=== PATIENT | female | born 1965 | race Caucasian/White ===

== ENCOUNTER → 2018-02-03 06:33 | Outpatient (CLI) | payer OTHER, SELFPAY ==
--- NOTE | 2018-02-03 12:55 | STRESSREP_ITS ---
Stress Test Report Exercise myocardial perfusion stress test. 53-year-old lady with a history of chest pain and dyspnea. Stress protocol: Resting EKG demonstrates normal sinus rhythm with a rate of 64 bpm no intervals are noted resting blood pressure is 112/76 meters of mercury. The patient exercised according to the regular Artem protocol for total duration of 10 minutes completing 1 minute into stage IV of the Artem protocol. The maximum heart rate attained was 155 bpm which was 92% of maximum predicted heart rate the maximum workload attained was 11.7 metabolic equivalents. At rest there were no ST or T-wave changes noted suggest ischemia at peak exercise no ST or T- wave changes were noted suggest ischemia. No clinical angina was noted the test was terminated due to leg fatigue. The resting blood pressure is 102/76 with a peak blood pressure 130/80 mmHg. Myocardial perfusion protocol. 13.9 mCi of technetium 99m sestamibi was injected at rest. The patient exercised according to regular Artem protocol for total duration of 10 minutes attaining 92% of maximum predicted heart rate at peak exercise 42.2 mCi of technetium 99m sestamibi was injected. Stress images were obtained stress and rest images were reconstructed and compared in the short axis vertical long and horizontal long axis. Gated images were also obtained Perfusion SPECT analysis: Review of the stress images demonstrate normal uptake of tracer noted in all areas of the myocardium. The resting images similarly demonstrate normal uptake of tracer noted in all areas of the myocardium. No areas of reversibility are noted suggest ischemia and no previous infarct is noted. Gated SPECT analysis. The gated ejection fraction is 73%. Conclusion: Normal exercise myocardial perfusion stress test at a high workload. Excellent functional capacity. Preserved ejection fraction.
== END ==
PROVIDERS: Family Provider Family Medicine; PCP Family Medicine; Visit Provider Internal Medicine Pulmonary Disease
DX: R06.00 Dyspnea, unspecified (principal)
CPT/HCPCS: 78452; 93017; A9500; A4216

== ENCOUNTER 2018-10-24 10:07 | Emergency (ER) | payer OTHER, SELFPAY ==
[2018-10-24 10:08] VITALS: BP 119/88; PULSE 62; RESP 14; TEMP 36.7; O2SAT 100; BMI 25.9
--- NOTE | 2018-10-24 10:27 | CT_ITS ---
STUDY: CT BRAIN WITHOUT CONTRAST REASON FOR EXAM: Female, 53 years old. Dizziness RADIATION DOSAGE (If Supplied By Facility): CTDIvol = ( 44.99 ) mGy, DLP = ( 745.49 ) mGycm TECHNIQUE: Transaxial CT imaging of the brain was performed without administration of intravenous contrast material. Individualized dose optimization techniques were used for this CT. COMPARISON: None. FINDINGS: There is no acute bleed or infarct. There are normal white matter tracts. The ventricles are normal in configuration. There is no hydrocephalus. The visualized paranasal sinuses are clear. The mastoid air cells are well aerated. There is no skull fracture. CT/Brain/Head without Contrast IMPRESSION: No acute intracranial abnormality. Electronically Signed: Porfirio Santacruz, at 11:12 EST Tel , Service support ,
--- NOTE | 2018-10-24 10:27 | RAD_ITS ---
STUDY: X-RAY CHEST REASON FOR EXAM: Female, 53 years old. Dizziness TECHNIQUE: Frontal view of the chest COMPARISON: None. FINDINGS: The lungs are clear. There are no pleural effusions. There is no pneumothorax. The heart is normal in size. The visualized osseous structures are within normal limits. RAD/Chest 1 View (Portable) IMPRESSION: No acute thoracic pathology. Electronically Signed: Porfirio Santacruz, at 11:15 EST Tel , Service support ,
--- NOTE | 2018-10-24 10:27 | EKG12_ITS ---
Test Reason : DIZZINESS Blood Pressure : / mmHG Vent. Rate : 062 BPM Atrial Rate : 062 BPM P-R Int : 186 ms QRS Dur : 086 ms QT Int : 436 ms P-R-T Axes : 049 092 045 degrees QTc Int : 442 ms Normal sinus rhythm with sinus arrhythmia Rightward axis Borderline ECG Confirmed by DIANNE VILLAR, HOMA ([id number]), slot editor DAIANA SPENCER ([id number] on 10/27/2018 2:53:33 PM Referred By: DC Confirmed By:HOMA DEAN MD
--- NOTE | 2018-10-24 10:30 | ED.DCSUM_ITS ---
- ER Visit Summary Date of Service: 10/24/18 Chief Complaint: Dizziness History of Present Illness: The patient is a 53 F with a history of breast cancer and vertigo. She presents today for dizziness. The symptoms have been going on for about 2 weeks. They have been intermittent, but in the last 3 days they have been constant. She describes an unsteadiness and worsening sensation when she turns her head. She does have some mild nausea without vomiting. Mild headache. Patient is fairly healthy and does [employer]. Her symptoms are worse at [employer]. She is not having chest pain, shortness of breath. She denies any cardiac history. She has not taken anything for this. She increased her fluid intake but has not had medicines. She went to urgent care and she was referred to the emergency department because they said they could not evaluate her heart. Physical Examination: Afebrile and vital signs unremarkable. Patient is alert and oriented. No acute distress. Sitting comfortably. HEENT exam unremarkable. Cranial nerves grossly intact. Heart regular. Lungs clear. Skin appears normal. No focal or lateralizing neurologic abnormalities grossly. Test Results: CT brain, chest x-ray, EKG, and labs pending. Emergency Department Course and Treatment: Patient treated with a fluid bolus and meclizine while awaiting results. Will reassess. Workup unremarkable. Patient discussed with Dr. Patel as she had minimal improvement with meclizine plus worsening and continuous vertigo recently. He advised MRI and MRA. We are waiting on clearance due to her previous cardiac wires. If MRI and MRA normal, patient will be discharged to follow up with ENT with an RX for meclizine. Signed out to Dr. Obando. Treatment Plan: As above Disposition: Pending MRI/MRA Impression: 1. Vertigo This note was generated with [employer] software. It may contain incorrect words, spelling, and punctuation that were not noted in review of the chart prior to signing ED Disposition - Plan for ED Patient: Chief Complaint: Dizziness Instructions: ED Vertigo Unspecified Prescriptions: RX: Meclizine HCl 25 mg PO TID PRN PRN #20 tab PRN Reason: Vertigo Referrals: Brian Glass MD [STAFF PHYSICIAN] -
[2018-10-24] MEDS: Meclizine HCl 25 MG Tablet PO (10:46)
[2018-10-24] MEDS: 0.9% Normal Saline 1,000 ML 1000 ML IV (10:46)
[2018-10-24 10:59] LABS: Absolute Lymphocyte Count 1.64 X10^3/ul (0.83-4.51); Absolute Neutrophil Count 2.7 X10^3/uL (2.0-7.7); Basophil# 0.04 X10^3/uL; Basophil% 0.8 % (0-1); Eosinophil# 0.19 X10^3/uL; Eosinophils% 3.8 % (0-5); Hematocrit 41.3 % (37-47); Hemoglobin 13.7 g/dl (12.0-15.0); Lymphocyte # 1.64 X10^3/ul (4.0); Lymphocyte % 32.6 % (19-41); Mean Corp Hgb Conc 33.2 g/gl (32-36); Mean Corpuscular Hgb 29.8 pg (27.0-32.0); Mean Corpuscular Volume 89.8 fL (81-99); Mean Platelet Vol. 9.4 fl (6.2-12.0); Monocyte# 0.48 X10^3/uL; Monocyte% 9.5 % (0-10); Neutrophil # 2.67 X10^3/uL (2.7-7.7); Neutrophil % 53.1 % (47-70); Platelet Count 289 K/mm3 (150-450); RBC Distribution Width CV 12.3 % (11.6-14.6); RBC Distribution Width SD 39.8 fl (35.1-43.9)
[2018-10-24 11:01] LABS: POSITIVE COUNT NO; POSITIVE DIFFERENTIAL NO; POSITIVE MORPHOLOGY NO
[2018-10-24 11:42] LABS: Anion Gap 8 (5-15); BUN 17 mg/dL (7-18); BUN/Creat Ratio 21.3 RATIO (10-20); Calcium,Total 8.9 mg/dL (8.5-10.1); Chloride 106 mmol/L (98-107); EST Glomerular Filtration Rate 80 mL/min (>60); Est Glom Filt Rate - Afr Amer 96 mL/min (>60); Estimated Creatinine Clearance 82.04 ml/min; Glucose 86 mg/dL (74-106); Potassium 3.9 mmol/L (3.5-5.1); Sodium Level 139 mmol/L (136-145)
[2018-10-24 12:54] VITALS: BP 118/78; PULSE 63; RESP 18; O2SAT 97
--- NOTE | 2018-10-24 16:02 | ED.DEP ---
ED Disposition - Plan for ED Patient: Chief Complaint: Dizziness Instructions: ED Vertigo Unspecified Prescriptions: Meclizine HCl 25 mg PO TID PRN PRN #20 tab PRN Reason: Vertigo Referrals: Brian Glass MD [STAFF PHYSICIAN] -
[2018-10-24 17:24] VITALS: BP 117/76; PULSE 63; RESP 16; O2SAT 100
--- OUTSIDE RECORDS SUMMARY | 2018-12-18 19:56 | XMS RPT_ITS ---
:1965 Author Organization [place] Support Name Relationship Address Phone [facility] Unavailable [address] + [place] [address] ARNOL HERNANDEZ Unavailable [address] + [place] [address] MARILUZ HERNANDEZIN Unavailable [address] + [place] [address] MARILUZ HERNANDEZIN Unavailable [address] + [place] [address] FADI HERNANDEZ Unavailable [address] + [place] [address] FORTINO, ARNOL Unavailable [address] + [place] [address] FORTINO, ARNOL Unavailable [address] + [place] [address] FORTINO, ARNOL Unavailable [address] + [place] [address] FORTNIO, ARNOL Unavailable [address] + [place] [address] FORTINO, ARNOL Unavailable [address] + [place] [address] FORTINO, ARNOL Unavailable [address] + [place] [address] MARILUZ HERNANDEZIN Unavailable [address] + [place] [address] FORTINO, ARNOL Unavailable [address] + [place] [address] [facility] Unavailable [address] + [place] [address] ARNOL HERNANDEZ Unavailable [address] + [place] [address] [facility] Unavailable [address] + [place] [address] ARNOL HERNANDEZ Unavailable [address] + [place] [address] Care Team Providers Name Role Phone Dwain Harry Attending Unavailable Harry Prakash Referring Unavailable Brown, Joy Primary Care Unavailable AzaliaMj almeidaril Attending Unavailable Sibernestine, Harry Referring Unavailable Brown, Joy Primary Care Unavailable Jose Shepherd Attending Unavailable JANICE VILLAR, ELIZABETH Adams Attending Unavailable BROWN, JOY Primary Care Unavailable NKECHI YOUNG DO Consulting Unavailable JANICE VILLAR, ELIZABETH Adams Consulting Unavailable ONIEL DUMONT MD Consulting Unavailable ELIZABETH CAMACHO MD Attending Unavailable BROWN, JOY Primary Care Unavailable VILLA HEATH MD Attending Unavailable BROWN, JOY Primary Care Unavailable VILLA HEATH MD Attending Unavailable BROWN, JOY Primary Care Unavailable VILLA HEATH MD Attending Unavailable BROWN, JOY Primary Care Unavailable PROBLEMS PROBLEMS DATE TYPE CONDITION / CODE ATTENDING STATUS SOURCE 02/06/2018 Unknown R06.00 - Dyspnea, Harry Prakash Active [facility] unspecified / Community R06.00(ICD-10) Hospital Repository 03/10/2018 Unknown R06.09 - Other [place], [place] Active [facility] forms of dyspnea Community / R06.09(ICD-10) Hospital Repository PROCEDURES PROCEDURES No Procedure Records FoundRESULTS RESULTS 12 LEAD ELECTROCARDIOGRAM Observed: 10/27/2018 Status: F Source: EDUAR 2:53 PM [facility] REPOSITORY [facility] Cardiovascular Services [address] [place] [address] 12 Lead EKG 10/24/18 1035 MR#: [id number] Acct: [id number] Name: ABDIRIZAK HERNANDEZRA Antunez Rep #: [id number] : 1965 53 From: Remigio Dean MD Attending Dr: Status: DEP ER Ordering Dr: Jose Shepherd MD Date: 10/24/18 Location: ED Sex: F C Admitted: Test Reason : DIZZINESS Blood Pressure : / mmHG Vent. Rate : 062 BPM Atrial Rate : 062 BPM P-R Int : 186 ms QRS Dur : 086 ms QT Int : 436 ms P-R-T Axes : 049 092 045 degrees QTc Int : 442 ms Normal sinus rhythm with sinus arrhythmia Rightward axis Borderline ECG Confirmed by DIANNE VILLAR, REMIGIO ([id number]), magazine editor DAIANA SPENCER ([id number]) on 10/27/2018 2:53:33 PM Referred By: DC Confirmed By:REMIGIO DEAN MD 10/27/18 1453 Date Remigio Dean MD CC: Jose Shepherd MD; Joy Vilchis DO Signed EMERGENCY DEPARTMENT Observed: 10/24/2018 Status: C Source: [place] SUMMARY 5:01 PM [facility] REPOSITORY [facility] Medical Records Department [address] [place] [address] Emergency Department Summary 10/24/18 1028 MR#: [id number] Acct: [id number] Name: LINDA HERNANDEZ Rep #: [id number] : 1965 53 From: Jose Shepherd MD PCP: Joy Vilchis DO Status: REG ER ADDENDUM by Marisa Gamez MD on 10/24/18 at 1701 Patient was signed out to me pending MRI. Patient reportedly has some kind of pacer wires in place, but states that she has had MRIs since having these in place. She listed 2 separate hospitals where she believed to have MRIs. The signal maintenance technician called both facilities but they do not have any record of MRI. MRI staff is reluctant to place the patient into the MRI scanner until we have verification that it is safe for her. I presented this back to the patient. Patient is currently feeling somewhat improved with meclizine and after eating lunch. She is been able to ablate to the restroom and back. She describes to me what sounds like positional vertigo. Symptoms started when she rolled over and she stated the room felt like it kept on spinning. Symptoms are worse with head rotation. She will be given a prescription for meclizine and given instructions on Louis maneuvers. She is comfortable with this plan and already has follow-up appointment scheduled with her cancer doctor on Friday. Position: Discharge Impression: Benign positional vertigo Date Marisa Gamez MD cc: Joy Vilchis, DO * Addendum - ER Visit Summary Date of Service: 10/24/18 Chief Complaint: Dizziness History of Present Illness: The patient is a 53 F with a history of breast cancer and vertigo. She presents today for dizziness. The symptoms have been going on for about 2 weeks. They have been intermittent, but in the last 3 days they have been constant. She describes an unsteadiness and worsening sensation when she turns her head. She does have some mild nausea without vomiting. Mild headache. Patient is fairly healthy and does CrossFit. Her symptoms are worse at [employer]. She is not having chest pain, shortness of breath. She denies any cardiac history. She has not taken anything for this. She increased her fluid intake but has not had medicines. She went to urgent care and she was referred to the emergency department because they said they could not evaluate her heart. Physical Examination: Afebrile and vital signs unremarkable. Patient is alert and oriented. No acute distress. Sitting comfortably. HEENT exam unremarkable. Cranial nerves grossly intact. Heart regular. Lungs clear. Skin appears normal. No focal or lateralizing neurologic abnormalities grossly. Test Results: CT brain, chest x-ray, EKG, and labs pending. Emergency Department Course and Treatment: Patient treated with a fluid bolus and meclizine while awaiting results. Will reassess. Workup unremarkable. Patient discussed with Dr. Patel as she had minimal improvement with meclizine plus worsening and continuous vertigo recently. He advised MRI and MRA. We are waiting on clearance due to her previous cardiac wires. If MRI and MRA normal, patient will be discharged to follow up with ENT with an RX for meclizine. Signed out to Dr. Obando. Treatment Plan: As above Disposition: Pending MRI/MRA Impression: 1. Vertigo This note was generated with Band Digitalation software. It may contain incorrect words, spelling, and punctuation that were not noted in review of the chart prior to signing ED Disposition - Plan for ED Patient: Chief Complaint: Dizziness Instructions: ED Vertigo Unspecified Prescriptions: RX: Meclizine HCl 25 mg PO TID PRN PRN #20 tab PRN Reason: Vertigo Referrals: Brian Glass MD [STAFF PHYSICIAN] - What to do if you have Problems For any increased pain, shortness of breath, bleeding, nausea or vomiting, chest pain, or any unexpected problems, contact your Primary Care Provider. Call [facility] ([phone]) or report to the closest Emergency Room. Call 911 if necessary. 10/24/181614 <Electronically signed by Jose Shepherd MD> Date Jose Shepherd MD Cosigner Signature (If Indicated): Date CC: Joy Vilchis DO DISCHARGE INSTRUCTION Observed: 10/24/2018 Status: F Source: MANLEY 4:15 PM [facility] REPOSITORY [facility] Medical Records Department [address] [place] [address] Discharge Instruction 10/24/18 1602 MR#: [id number] Acct: [id number] Name: LINDA HERNANDEZ Rep #: [id number] : 1965 53 From: Jose Shepherd MD PCP: Joy Vilchis DO Status: REG ER ED Disposition - Plan for ED Patient: Chief Complaint: Dizziness Instructions: ED Vertigo Unspecified Prescriptions: Meclizine HCl 25 mg PO TID PRN PRN #20 tab PRN Reason: Vertigo Referrals: Brian Glass MD [STAFF PHYSICIAN] - What to do if you have Problems For any increased pain, shortness of breath, bleeding, nausea or vomiting, chest pain, or any unexpected problems, contact your Primary Care Provider. Call [facility] ([phone]) or report to the closest Emergency Room. Call 911 if necessary. 10/24/181614 <Electronically signed by Jose Shepherd MD> Date Jose Sneed Signature (If Indicated): Date CC: Joy Vilchis, CBC W/DIFF, AUTOMATED Collected: 10/24/2018 Status: F Source: EDUAR 10:45 AM [facility] REPOSITORY TYPE CODE TESTS RESULT OUT OF RANGE REFERENCE UNITS LAB L100.1000 4.4-11.0 K/mm3 Normal WBC 5.0 LAB L100.1200 4.2-5.4 M/mm3 Normal RBC 4.60 LAB L100.1300 12.0-15.0 g/dl Normal HGB 13.7 LAB L100.1400 37-47 % Normal HCT 41.3 LAB L100.1500 81-99 fL Normal MCV 89.8 LAB L100.1600 27.0-32.0 pg Normal MCH 29.8 LAB L100.1700 32-36 g/gl Normal MCHC 33.2 LAB L100.1810 11.6-14.6 % Normal RDW CV 12.3 LAB L100.1820 35.1-43.9 fl Normal RDW SD 39.8 LAB L100.1900 150-450 K/mm3 Normal PLT 289 LAB L100.2000 6.2-12.0 fl Normal MPV 9.4 LAB L100.2100 47-70 % Normal NEUT% 53.1 LAB L100.2200 19-41 % Normal LY% 32.6 LAB L100.2300 0-10 % Normal MONO% 9.5 LAB L100.2400 0-5 % Normal EO% 3.8 LAB L100.2500 0-1 % Normal BASO% 0.8 LAB L100.2550 0.0-0.9 % Normal IM GRAN % 0.200 Result Comment: IG% - Immature Granulocytes (promyelocytes, myelocytes and metamyelocytes) > 1% indicates that a LEFT SHIFT is Present. LAB L100.2620 2.0-7.7 X10 3/uL Normal Absolute Neut 2.7 LAB L100.2720 0.83-4.51 X10 3/ul Normal Absolute Lymph 1.64 Performed By: #### L100.0100 #### [facility] [address] [place], [place], [id number] BASIC METABOLIC Collected: 10/24/2018 Status: F Source: EDUAR PROFILE (BMP) 10:45 AM [facility] REPOSITORY TYPE CODE TESTS RESULT OUT OF RANGE REFERENCE UNITS LAB L501.0100 74-106 mg/dL Normal GLU 86 Result Comment: Please note revised GLUCOSE reference range effective 2017. LAB L501.1000 7-18 mg/dL Normal BUN 17 LAB L501.1100 0.55-1.02 mg/dL Normal CREAT,SERUM 0.80 Result Comment: The validity of the calculated GFR AND GFRAA in patients over 70 years has not been determined. Clinical correlation is essential. LAB L501.1110 >60 mL/min Normal EST GFR 80 Result Comment: Non- GFR Calc LAB L501.1115 >60 mL/min Normal EST GFR - AA 96 Result Comment: GFR Calc LAB L501.1255 ml/min Normal Estimated CRCL 82.04 LAB L501.1300 10-20 RATIO High BUN/CRE 21.3 LAB L501.2200 8.5-10 mg/dL Normal .1 CA 8.9 LAB L501.5300 136-14 mmol/L Normal 5 NA 139 LAB L501.5600 3.5-5. mmol/L Normal 1 K 3.9 LAB L501.5900 98-107 mmol/L Normal CL 106 LAB L501.6100 21.0-3 mmol/L Normal 2.0 CO2 25.0 LAB L501.6200 5-15 Normal GAP 8 Performed By: #### L500.2500, L501.4010 #### [facility] [address] [place], [place], [address] TROPONIN-I Collected: 10/24/2018 Status: F Source: EDUAR 10:45 AM [facility] REPOSITORY TYPE CODE TESTS RESULT OUT OF RANGE REFERENCE UNITS LAB L501.4010 <0.045 ng/mL Normal < 0.015 TROPONIN-I Result Comment: TROPONIN-I EXPECTED VALUES <0.045 Negative 0.045 - 0.590 Consistent with Cardiac Damage > OR = 0.600 Critical Value Not every elevated troponin is indicative of [place]. These values should be used with clinical judgement in examining the patient's clinical picture for diagnosis. To establish a diagnosis of [place] versus myocardial injury, there must be a demonstrated rise and/or fall in the troponin values, in addition to ischemic symptoms, EKG changes, new regional wall motion abnormality, and/or angiographical evidence. PLEASE NOTE: REFERENCE RANGES EDITED 18 Performed By: #### L500.2500, L501.4010 #### [facility] [address] [place], [address] BRAIN/HEAD WITHOUT Observed: 10/24/2018 Status: F Source: [place] CONTRAST 10:29 AM [facility] REPOSITORY [facility] Imaging Services [address] [place] [address] Brain/Head without Contrast MR#: [id number] Acct: [id number] Name: LINDA HERNANDEZ Rep #: [id number] : 1965 F 53 From: Porfirio Santacruz MD PCP: Joy Vilchis DO Status: PRE ER Study: Brain/Head without Contrast Date of Exam: 10/24/18 Exam# [id number] Ordering Dr: Jose Shepherd MD STUDY: CT BRAIN WITHOUT CONTRAST REASON FOR EXAM: Female, 53 years old. Dizziness RADIATION DOSAGE (If Supplied By Facility): CTDIvol = ( 44.99 ) mGy, DLP = ( 745.49 ) mGycm TECHNIQUE: Transaxial CT imaging of the brain was performed without administration of intravenous contrast material. Individualized dose optimization techniques were used for this CT. COMPARISON: None. FINDINGS: There is no acute bleed or infarct. There are normal white matter tracts. The ventricles are normal in configuration. There is no hydrocephalus. The visualized paranasal sinuses are clear. The mastoid air cells are well aerated. There is no skull fracture. CT/Brain/Head without Contrast IMPRESSION: No acute intracranial abnormality. Electronically Signed: Porfirio Santacruz, at 11:12 EST Tel , Service support , CC: Jose Shepherd MD; Joy Vilchis DO Gas Brazer: Signed CHEST 1 VIEW Observed: 10/24/2018 Status: F Source: [place] (PORTABLE) 10:29 AM [facility] REPOSITORY [facility] Imaging Services [address] [place] [address] Chest 1 View (Portable) MR#: [id number] Acct: [id number] Name: LINDA HERNANDEZ Rep #: [id number] : 1965 F 53 From: Porfirio Santacruz MD PCP: Joy Vilchis DO Status: PRE ER Study: Chest 1 View (Portable) Date of Exam: 10/24/18 Exam# [id number] Ordering Dr: Jose Shepherd MD STUDY: X-RAY CHEST REASON FOR EXAM: Female, 53 years old. Dizziness TECHNIQUE: Frontal view of the chest COMPARISON: None. FINDINGS: The lungs are clear. There are no pleural effusions. There is no pneumothorax. The heart is normal in size. The visualized osseous structures are within normal limits. RAD/Chest 1 View (Portable) IMPRESSION: No acute thoracic pathology. Electronically Signed: Porfirio Noam, at 11:15 EST Tel , Service support , CC: Jose Shepherd MD; Joy Vilchis DO Gas Brazer: Signed CBC Collected: 10/07/2018 Status: F Source: [facility] 6:37 AM [facility] REPOSIT[facility] TYPE CODE TESTS RESULT OUT OF REFERENCE UNITS RANGE LAB WBC(LOINC) 4.60-10.80 10 3/mcL WBC 5.60 LAB RBCCT(LOINC 4.20-5.40 10 6/mcL ) RBC 4.40 LAB HGB(LOINC) 12.0-16.0 G/dL Hgb 13.0 LAB HCT(LOINC) 37.0-47.0 % Hct 38.9 LAB MCV(LOINC) 80.0-94.0 fL MCV 88.4 LAB MCH(LOINC) 27.0-31.2 pg MCH 29.5 LAB MCHC(LOINC) 33.0-37.0 G/dL MCHC 33.4 LAB RDW(LOINC) 11.5-14.5 % RDW 12.8 LAB PLT(LOINC) 130-400 10 3/mcL Platelet 293 LAB MPV(LOINC) 7.4-10.4 fL MPV 8.0 Performed By: #### E2, CMP, LIPID, TSH, FSH, GFR, LH #### [address] [address] #### ANEU, CBC, ADIFF #### [address] [address] .AUTO DIFF Collected: 10/07/2018 Status: F Source: [facility] 6:37 AM [facility] REPOSITORY TYPE CODE TESTS RESULT OUT OF REFERENCE UNITS RANGE LAB DENIS(LOINC) 37.0-80.0 % Neutrophil % 52.6 LAB LYM(LOINC) 10.0-50.0 % Lymphocyte % 34.4 LAB MON(LOINC) 1.7-13.0 % Monocyte % 8.0 LAB EO(LOINC) 0.0-7.0 % Eosinophil % 4.2 LAB BAS(LOINC) 0.0-2.5 % Basophil % 0.8 LAB ABLYM(LOIN 0.77-3.85 10 3/mcL C) Lymphocyte, 1.90 Absolute LAB SAMIRA(LOINC 0.15-1.00 10 3/mcL ) Monocyte, 0.40 Absolute LAB AEOS(LOINC 0.00-0.40 10 3/mcL ) Eosinophil, 0.20 Absolute LAB ABAS(LOINC 0.00-0.19 10 3/mcL ) Basophil, 0.00 Absolute Performed By: #### E2, CMP, LIPID, TSH, FSH, GFR, LH #### [address] [address] #### ANEU, CBC, ADIFF #### [address] [address] .NEUABS Collected: 10/07/2018 Status: F Source: [facility] 6:37 AM [facility] REPOSITORY TYPE CODE TESTS RESULT OUT OF REFERENCE UNITS RANGE LAB ANEU(LOINC) 2.85-6.16 10 3/mcL Neutrophil, 2.90 Absolute Performed By: #### E2, CMP, LIPID, TSH, FSH, GFR, LH #### [place] [address] #### ANEU, CBC, ADIFF #### [address] [address] TSH Collected: 10/07/2018 Status: F Source: [facility] 6:37 AM [facility] REPOSITORY TYPE CODE TESTS RESULT OUT OF RANGE REFERENCE UNITS LAB TSH(LOINC) 0.36-3.74 mcIU/mL High TSH 3.88 Performed By: #### E2, CMP, LIPID, TSH, FSH, GFR, LH #### [place] [address] #### ANEU, CBC, ADIFF #### [address] [address] LIPID Collected: 10/07/2018 Status: F Source: [facility] 6:37 AM [facility] REPOSITORY TYPE CODE TESTS RESULT OUT OF REFERENCE UNITS RANGE LAB CHOL(LOINC 0-200 mg/dL ) Cholesterol High 217 Result Comment: Cholesterol Reference Interval: Less than 200 Desirable 200-239 Borderline high risk 240 and above High risk LAB TRIG(LOINC) 0-150 mg/dL Triglycerides 93 Result Comment: Triglyceride Reference Interval: Less than 150 Normal 150-199 Borderline high risk 200-499 High risk 500 or higher Very high risk LAB HD(LOINC) 40-60 mg/dL HDL Cholesterol 50 LAB LDL(LOINC) 0-130 mg/dL LDL High Cholesterol 148 Performed By: #### E2, CMP, LIPID, TSH, FSH, GFR, LH #### [address] [address] #### ANEU, CBC, ADIFF #### [place] [address] [place], [place] [address] CMP Collected: 10/07/2018 Status: F Source: [facility] 6:37 AM [facility] REPOSITORY TYPE CODE TESTS RESULT OUT OF REFERENCE UNITS RANGE LAB GLU(LOINC) 70-105 mg/dL Glucose Level 83 LAB NA(LOINC) 136-145 mmol/L Sodium Level 140 LAB K(LOINC) 3.5-5.1 mmol/L Potassium Level 4.4 LAB CL(LOINC) 98-107 mmol/L Chloride 104 LAB CO2(LOINC) 22-29 mmol/L CO2 27 LAB EBAL(LOINC mEq/L ) Electrolyte Balance 9.0 LAB BUN(LOINC) 7-18 mg/dL BUN 16 LAB CRE(LOINC) 0.55-1.02 mg/dL Creatinine Lvl (s) 0.78 LAB BC(LOINC) 7-27 ratio BUN/Creatinine 21 Ratio LAB CA(LOINC) 8.4-10.2 mg/dL Calcium Lvl 8.6 LAB PROT(LOINC 6.4-8.2 G/dL ) Total Protein 6.8 LAB ALB(LOINC) 3.5-5.0 G/dL Albumin Level 4.0 LAB GLB(LOINC) G/dL Globulin 2.8 LAB AG(LOINC) 1.1-2.5 ratio A/G Ratio 1.4 LAB BILT(LOINC 0.2-1.0 mg/dL ) Bili Total 0.5 LAB AP(LOINC) 40-135 U/L Alk Phos 51 LAB AST(LOINC) 10-40 U/L AST/SGOT 15 LAB ALT(LOINC) 10-35 U/L ALT/SGPT 22 Performed By: #### E2, CMP, LIPID, TSH, FSH, GFR, LH #### [address] [address] #### ANEU, CBC, ADIFF #### [address] [address] .GFR Collected: 10/07/2018 Status: F Source: [facility] 6:37 AM [facility] REPOSITORY TYPE CODE TESTS RESULT OUT OF REFERENCE UNITS RANGE LAB GFRAA(LOINC ml/min/1.73 ) sqm GFR 94 [place] Result Comment: GFR Population mean for , Non- Americans Ages 20-29 = 116 mL/min/1.73 sq.m. Ages 30-39 = 107 mL/min/1.73 sq.m. Ages 40-49 = 99 mL/min/1.73 sq.m. Ages 50-59 = 93 mL/min/1.73 sq.m. Ages 60-69 = 85 mL/min/1.73 sq.m. Ages 70+ = 75 mL/min/1.73 sq.m. Chronic Kidney Disease: Less than 60 mL/min/1.73 square meters End Stage Renal Disease: Less than 15 mL/min/1.73 square meters LAB GFRNO(LOINC) ml/min/1.73sqm GFR Non- 77 Result Comment: GFR Population mean for , Non- Americans Ages 20-29 = 116 mL/min/1.73 sq.m. Ages 30-39 = 107 mL/min/1.73 sq.m. Ages 40-49 = 99 mL/min/1.73 sq.m. Ages 50-59 = 93 mL/min/1.73 sq.m. Ages 60-69 = 85 mL/min/1.73 sq.m. Ages 70+ = 75 mL/min/1.73 sq.m. Chronic Kidney Disease: Less than 60 mL/min/1.73 square meters End Stage Renal Disease: Less than 15 mL/min/1.73 square meters Performed By: #### E2, CMP, LIPID, TSH, FSH, GFR, LH #### [address] [address] #### ANEU, CBC, ADIFF #### [address] [address] E2 Collected: 10/07/2018 Status: F Source: [facility] 6:37 AM [facility] TYPE CODE TESTS RESULT OUT OF REFERENCE UNITS RANGE LAB E2(LOINC) pg/mL Estradiol Level 222 Result Comment: Adult Female E2 Reference Ranges (11/29/11): Follicular phase 21 - 165 pg/mL Midcycle 50 - 367 pg/mL Luteal phase 40 - 259 pg/mL Post menopausal 11 - 58 pg/mL Performed By: #### E2, CMP, LIPID, TSH, FSH, GFR, LH #### [address] [address] #### ANEU, CBC, ADIFF #### [place] [address] [place], [place] [address] LH Collected: 10/07/2018 Status: F Source: [facility] 6:37 AM [facility] REPOSITORY TYPE CODE TESTS RESULT OUT OF RANGE REFERENCE UNITS LAB LH(LOINC) mIU/mL LH 21.7 Result Comment: Adult Female LH Reference Ranges (11/29/11): Follicular phase 1.7 - 15.0 mIU/mL Midcycle phase 21.9 - 56.6 mIU/mL Luteal phase 0.6 - 16.3 mIU/mL Post menopausal 14.2 - 52.3 mIU/mL Performed By: #### E2, CMP, LIPID, TSH, FSH, GFR, LH #### [address] [address] #### ANEU, CBC, ADIFF #### [address] [address] FSH Collected: 10/07/2018 Status: F Source: [facility] 6:37 AM [facility] REPOSITORY TYPE CODE TESTS RESULT OUT OF RANGE REFERENCE UNITS LAB FSH(LOINC) mIU/mL FSH 7.1 Result Comment: Adult Female FSH Reference Ranges (10/17/99): Follicular phase 2.5 - 10.2 mIU/mL Midcycle phase 3.4 - 33.4 mIU/mL Luteal phase 1.5 - 9.1 mIU/mL Post menopausal 23.0 -116.3 mIU/mL Adult Male: 1.4 - 18.1 mIU/mL Performed By: #### E2, CMP, LIPID, TSH, FSH, GFR, LH #### [address] [address] #### ANEU, CBC, ADIFF #### [place] [address] [place], [place] [address] XR CHEST 2 VIEWS Observed: 04/10/2018 Status: F Source: [facility] 4:56 PM [facility] REPOSITORY ORIGINAL XR CHEST 2 VIEWS, Clinical Statement: breast ca, , shortness of breath Comparison: 09/30/2016 Findings: No consolidation, pneumothorax, pleural fluid, or vascular congestion is seen. Heart size and mediastinal contours are within normal limits for age and projection. No acute skeletal abnormality. IMPRESSION: No acute cardiopulmonary process. Interpreted By: Herber Granger MD Preliminary Report By: Herber Granger MD Electronically Signed By: Herber Granger MD Dictated Date: 04/10/2018 11:53:58 PM Prelim Date: 04/10/2018 11:53:58 PM Sign Date: 04/10/2018 11:54:20 PM CBC Collected: 03/30/2018 Status: F Source: [facility] 6:46 AM [facility] REPOSITORY TYPE CODE TESTS RESULT OUT OF REFERENCE UNITS RANGE LAB WBC(LOINC) 4.60-10.80 10 3/mcL WBC 9.30 LAB RBCCT(LOINC 4.20-5.40 10 6/mcL ) RBC 4.75 LAB HGB(LOINC) 12.0-16.0 G/dL Hgb 14.1 LAB HCT(LOINC) 37.0-47.0 % Hct 41.1 LAB MCV(LOINC) 80.0-94.0 fL MCV 86.4 LAB MCH(LOINC) 27.0-31.2 pg MCH 29.7 LAB MCHC(LOINC) 33.0-37.0 G/dL MCHC 34.3 LAB RDW(LOINC) 11.5-14.5 % RDW 12.9 LAB PLT(LOINC) 130-400 10 3/mcL Platelet 320 LAB MPV(LOINC) 7.4-10.4 fL MPV 8.1 Performed By: #### CBC, ANEU, ADIFF, CMP, GFR #### [address] [address] #### FSH, LH, E2 #### [address] [address] .AUTO DIFF Collected: 03/30/2018 Status: F Source: [facility] 6:46 AM [facility] REPOSITORY TYPE CODE TESTS RESULT OUT OF REFERENCE UNITS RANGE LAB DENIS(LOINC) 37.0-80.0 % Neutrophil % 66.7 LAB LYM(LOINC) 10.0-50.0 % Lymphocyte % 23.3 LAB MON(LOINC) 1.7-13.0 % Monocyte % 7.2 LAB EO(LOINC) 0.0-7.0 % Eosinophil % 2.3 LAB BAS(LOINC) 0.0-2.5 % Basophil % 0.5 LAB ABLYM(LOIN 0.77-3.85 10 3/mcL C) Lymphocyte, 2.20 Absolute LAB SAMIRA(LOINC 0.15-1.00 10 3/mcL ) Monocyte, 0.70 Absolute LAB AEOS(LOINC 0.00-0.40 10 3/mcL ) Eosinophil, 0.20 Absolute LAB ABAS(LOINC 0.00-0.19 10 3/mcL ) Basophil, 0.00 Absolute Performed By: #### CBC, ANEU, ADIFF, CMP, GFR #### [address] [address] #### FSH, LH, E2 #### [place] [address] .NEUABS Collected: 03/30/2018 Status: F Source: [facility] 6:46 AM [facility] REPOSITORY TYPE CODE TESTS RESULT OUT OF REFERENCE UNITS RANGE LAB ANEU(LOINC) 2.85-6.16 10 3/mcL High Neutrophil, 6.20 Absolute Performed By: #### CBC, ANEU, ADIFF, CMP, GFR #### [address] [address] #### FSH, LH, E2 #### [place] [address] CMP Collected: 03/30/2018 Status: F Source: [facility] 6:46 AM [facility] REPOSITORY TYPE CODE TESTS RESULT OUT OF REFERENCE UNITS RANGE LAB 1547-9 70-105 mg/dL GLUCOSE 96 LAB NA(LOINC) 136-146 mEq/L Sodium Level 138 LAB K(LOINC) 3.5-5.1 mEq/L Potassium Level 4.1 LAB CL(LOINC) 98-107 mEq/L Chloride 104 LAB CO2(LOINC) 22-29 mEq/L CO2 26 LAB EBAL(LOINC mEq/L ) Electrolyte Balance 8.0 LAB BUN(LOINC) 7.0-18.0 mg/dL BUN 16.9 LAB CRE(LOINC) 0.6-1.2 mg/dL Creatinine Lvl (s) 0.8 LAB BC(LOINC) 7-27 ratio BUN/Creatinine 21 Ratio LAB CA(LOINC) 8.4-10.2 mg/dL Calcium Lvl 9.2 LAB PROT(LOINC 6.0-8.3 G/dL ) Total Protein 7.0 LAB ALB(LOINC) 3.5-5.0 G/dL Albumin Level 4.3 LAB GLB(LOINC) G/dL Globulin 2.7 LAB AG(LOINC) 1.1-2.5 ratio A/G Ratio 1.6 LAB BILT(LOINC 0.2-1.0 mg/dL ) Bili Total 0.4 LAB AP(LOINC) 40-135 IU/L Alk Phos 68 LAB AST(LOINC) 10-40 IU/L AST/SGOT 18 LAB ALT(LOINC) 10-35 IU/L ALT/SGPT 16 Performed By: #### CBC, ANEU, ADIFF, CMP, GFR #### [address] [address] #### FSH, LH, E2 #### [address] [address] .GFR Collected: 03/30/2018 Status: F Source: [facility] 6:46 AM [facility] REPOSITORY TYPE CODE TESTS RESULT OUT OF REFERENCE UNITS RANGE LAB GFRAA(LOINC ml/min/1.73 ) sqm GFR 89 Bur[place]ian Result Comment: GFR Population mean for , Non- Americans Ages 20-29 = 116 mL/min/1.73 sq.m. Ages 30-39 = 107 mL/min/1.73 sq.m. Ages 40-49 = 99 mL/min/1.73 sq.m. Ages 50-59 = 93 mL/min/1.73 sq.m. Ages 60-69 = 85 mL/min/1.73 sq.m. Ages 70+ = 75 mL/min/1.73 sq.m. Chronic Kidney Disease: Less than 60 mL/min/1.73 square meters End Stage Renal Disease: Less than 15 mL/min/1.73 square meters LAB GFRNO(LOINC) ml/min/1.73sqm GFR Non- >60 Result Comment: GFR Population mean for , Non- Americans Ages 20-29 = 116 mL/min/1.73 sq.m. Ages 30-39 = 107 mL/min/1.73 sq.m. Ages 40-49 = 99 mL/min/1.73 sq.m. Ages 50-59 = 93 mL/min/1.73 sq.m. Ages 60-69 = 85 mL/min/1.73 sq.m. Ages 70+ = 75 mL/min/1.73 sq.m. Chronic Kidney Disease: Less than 60 mL/min/1.73 square meters End Stage Renal Disease: Less than 15 mL/min/1.73 square meters Performed By: #### CBC, ANEU, ADIFF, CMP, GFR #### [address] [address] #### FSH, LH, E2 #### [facility] [address] [place] [address] E2 Collected: 03/30/2018 Status: F Source: [facility] 6:46 AM [facility] REPOSITORY TYPE CODE TESTS RESULT OUT OF REFERENCE UNITS RANGE LAB E2(LOINC) pg/mL Estradiol Level 49 Result Comment: Adult Female E2 Reference Ranges (11/29/11): Follicular phase 21 - 165 pg/mL Midcycle 50 - 367 pg/mL Luteal phase 40 - 259 pg/mL Post menopausal 11 - 58 pg/mL Performed By: #### CBC, ANEU, ADIFF, CMP, GFR #### [address] [address] #### FSH, LH, E2 #### [address] [address] LH Collected: 03/30/2018 Status: F Source: [facility] 6:46 AM [facility] REPOSITORY TYPE CODE TESTS RESULT OUT OF RANGE REFERENCE UNITS LAB LH(LOINC) mIU/mL LH 6.6 Result Comment: Adult Female LH Reference Ranges (11/29/11): Follicular phase 1.7 - 15.0 mIU/mL Midcycle phase 21.9 - 56.6 mIU/mL Luteal phase 0.6 - 16.3 mIU/mL Post menopausal 14.2 - 52.3 mIU/mL Performed By: #### CBC, ANEU, ADIFF, CMP, GFR #### [address] [address] #### FSH, LH, E2 #### [facility] [address] [place] [address] FSH Collected: 03/30/2018 Status: F Source: [facility] 6:46 AM [facility] REPOSITORY TYPE CODE TESTS RESULT OUT OF RANGE REFERENCE UNITS LAB FSH(LOINC) mIU/mL FSH 3.0 Result Comment: Adult Female FSH Reference Ranges (10/17/99): Follicular phase 2.5 - 10.2 mIU/mL Midcycle phase 3.4 - 33.4 mIU/mL Luteal phase 1.5 - 9.1 mIU/mL Post menopausal 23.0 -116.3 mIU/mL Adult Male: 1.4 - 18.1 mIU/mL Performed By: #### CBC, ANEU, ADIFF, CMP, GFR #### [facility] [address] [place] [address] #### FSH, LH, E2 #### [facility] [address] [place], [place] [id number] US BREAST RIGHT Observed: 03/06/2018 Status: F Source: [facility] 7:30 AM [facility] REPOSITORY ORIGINAL FROM: [place] [address] PROCEDURE FOR: LINDA HERNANDEZ [address] [place] [address] Home: PID#: [id number] Exam#: [id number] : 1965 Age: 53 TO: ELIZABETH CAMACHO MD [facility] OF [address] [place] [address] #[id number] ULTRASOUND OF RIGHT BREAST: 03/06/2018 CLINICAL: FOCAL PAIN RIGHT BREAST. No prior exams were available for comparison. Real-time ultrasound of the right breast was performed. There is no sonographic abnormality to correspond to the area of pain. A breast implant is seen with no evidence of rupture. The patient is status post mastectomy. IMPRESSION: BENIGN No significant abnormality. Patient should be followed clinically. There is no sonographic evidence of malignancy. MAVERICK WADE MD ab/:03/06/2018 08:47:56 Collision Mechanic: JUAREZ CARRANZA RDMN, [facility] letter sent: Normal BI-RADS 1&2 Ultrasound BI-RADS: 2 Benign CBC Collected: 02/17/2018 Status: F Source: [facility] 8:15 AM [facility] REPOSITORY TYPE CODE TESTS RESULT OUT OF REFERENCE UNITS RANGE LAB WBC(LOINC) 4.50-10.80 10 3/mcL WBC 6.40 LAB RBCCT(LOINC 4.10-5.30 10 6/mcL ) RBC 4.63 LAB HGB(LOINC) 12.0-16.0 G/dL Hgb 13.7 LAB HCT(LOINC) 34.0-46.0 % Hct 40.5 LAB MCV(LOINC) 80.0-99.0 fL MCV 87.5 LAB MCH(LOINC) 27.0-33.0 pg MCH 29.6 LAB MCHC(LOINC) 32.0-36.0 G/dL MCHC 33.8 LAB RDW(LOINC) 11.5-15.5 % RDW 12.4 LAB PLT(LOINC) 150-450 10 3/mcL Platelet 315 LAB MPV(LOINC) 6.6-10.5 fL MPV 7.6 Performed By: #### ANEU, BMP, GFR, CBC, ADIFF #### [place] [address] .AUTO DIFF Collected: 02/17/2018 Status: F Source: [facility] 8:15 AM [facility] REPOSITORY TYPE CODE TESTS RESULT OUT OF REFERENCE UNITS RANGE LAB DENIS(LOINC) 50.0-75.0 % Neutrophil % 54.3 LAB LYM(LOINC) 20.0-40.0 % Lymphocyte % 31.7 LAB MON(LOINC) 2.0-13.0 % Monocyte % 9.9 LAB EO(LOINC) 0.0-6.0 % Eosinophil % 3.1 LAB BAS(LOINC) 0.0-2.5 % Basophil % 1.0 LAB ABLYM(LOIN 0.90-4.32 10 3/mcL C) Lymphocyte, 2.00 Absolute LAB SAMIRA(LOINC 0.09-1.40 10 3/mcL ) Monocyte, 0.60 Absolute LAB AEOS(LOINC 0.00-0.65 10 3/mcL ) Eosinophil, 0.20 Absolute LAB ABAS(LOINC 0.00-0.27 10 3/mcL ) Basophil, 0.10 Absolute Performed By: #### ANEU, BMP, GFR, CBC, ADIFF #### [place] [address] .NEUABS Collected: 02/17/2018 Status: F Source: [facility] 8:15 AM [facility] REPOSITORY TYPE CODE TESTS RESULT OUT OF REFERENCE UNITS RANGE LAB ANEU(LOINC) 2.25-8.10 10 3/mcL Neutrophil, 3.50 Absolute Performed By: #### ANEU, BMP, GFR, CBC, ADIFF #### [place] [address] BMP Collected: 02/17/2018 Status: F Source: [facility] 8:15 AM [facility] REPOSITORY TYPE CODE TESTS RESULT OUT OF REFERENCE UNITS RANGE LAB GLU(LOINC) 70-110 mg/dL Glucose Level 90 LAB NA(LOINC) 136-145 mEq/L Sodium Level 141 LAB K(LOINC) 3.5-5.0 mEq/L Potassium Level 4.4 LAB CL(LOINC) 98-110 mEq/L Chloride 107 LAB CO2(LOINC) 22-32 mEq/L CO2 26 LAB EBAL(LOINC 4.0-15.0 mEq/L ) Electrolyte Balance 8.0 LAB BUN(LOINC) 8.0-22.0 mg/dL BUN 15.0 LAB CRE(LOINC) 0.50-1.20 mg/dL Creatinine Lvl (s) 0.81 LAB BC(LOINC) 10.0-22.0 ratio BUN/Creatinine 18.5 Ratio LAB CA(LOINC) 8.4-10.1 mg/dL Calcium Lvl 9.1 Performed By: #### ANEU, BMP, GFR, CBC, ADIFF #### [place] [address] .GFR Collected: 02/17/2018 Status: F Source: [facility] 8:15 AM [facility] REPOSITORY TYPE CODE TESTS RESULT OUT OF REFERENCE UNITS RANGE LAB GFRAA(LOINC ml/min/1.73 ) sqm GFR >60 Bur[place]ian Result Comment: GFR Population mean for , Non- Americans Ages 20-29 = 116 mL/min/1.73 sq.m. Ages 30-39 = 107 mL/min/1.73 sq.m. Ages 40-49 = 99 mL/min/1.73 sq.m. Ages 50-59 = 93 mL/min/1.73 sq.m. Ages 60-69 = 85 mL/min/1.73 sq.m. Ages 70+ = 75 mL/min/1.73 sq.m. Chronic Kidney Disease: Less than 60 mL/min/1.73 square meters End Stage Renal Disease: Less than 15 mL/min/1.73 square meters LAB GFRNO(LOINC) ml/min/1.73sqm GFR Non- >60 Result Comment: GFR Population mean for , Non- Americans Ages 20-29 = 116 mL/min/1.73 sq.m. Ages 30-39 = 107 mL/min/1.73 sq.m. Ages 40-49 = 99 mL/min/1.73 sq.m. Ages 50-59 = 93 mL/min/1.73 sq.m. Ages 60-69 = 85 mL/min/1.73 sq.m. Ages 70+ = 75 mL/min/1.73 sq.m. Chronic Kidney Disease: Less than 60 mL/min/1.73 square meters End Stage Renal Disease: Less than 15 mL/min/1.73 square meters Performed By: #### ANEU, BMP, GFR, CBC, ADIFF #### [place] [address] PROGRESS Observed: 02/05/2018 Status: COMPLETED Source: [place] 2:15 PM [facility] REPOSITORY [facility] ID: [id number] Author: Cordell Orozco Provider Service: (none) Author Type: Physician Type: Progress Notes Filed: 02/05/2018 10:39 AM Note Text: null ( ) Visit Summary for Linda Hernandez - Gender: Female - Date of : 1965 Date: [id number] - Duration: 15 minutes Patient: Linda Hernandez Provider: Maude Adorno Patient Contact Information Address [address] [address] Nate Borrero [facility] [address] [phone] Visit Topics Sinus congestion cough feeling exhausted [Added By: Self - 2018-02-05] Triage Questions Please provide your current address. We need this on file in case of a medical emergency.Answer [[id number] nate borrero] Conversation Transcripts [Notification] You are connected with Maude Adorno, Family Physician.[Notification] Linda Hernandez is located in [place].[Notification] Linda Hernandez has shared health history... Diagnosis Acute bronchitis, unspecified Value: J20.9 Code: ICD-10-CM Disorders of diaphragm Value: J98.6 Code: ICD-10-CM Procedures Value: 11590 Code: CPT-4 ONLINE E/M BY PHYS/QHP Medications Prescribed fluticasone Strength : 50 mcg/actuation Frequency : Patient Instructions : one spray to both nostrils bid Refills : 0 Instructions to the Pharmacist : Substitutions allowed doxycycline hyclate Dose : 1 tablet Strength : 100 mg Route : oral Frequency : 2 times a day. Refills : 0 Instructions to the Pharmacist : Substitutions allowed Provider Notes We strongly encourage you to share the following record of today's visit with your primary care physician. Contact phone number: Mode of Communication: HPI: she is always sob as she has issues with her diaphragm. uri for 5 dys. she is taking alkaselzer plus multi symptoms, then mucinex dm, then an allergy pill with antihistimine loratadine. Initially her nose was running and running. she thinks what started it was allergies. when she wakes up she has yellow mucus. but it turns clear later on. Her mucus is just running and she chooses not to use her bipap. a long time again she had an inhaler. drinks 1/2 gallon of water a day. 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 PSH:breast cancer a year ago with double mastectomy, , gb, hyesterectomy Meds: bipsp, lexapro, Allergies: tamoxafen side effects,Exam: Gen: Alert, normal mental status and interaction, no visible distress, non- toxic appearance. irritative cough. some sob. Assessment: paralyzed diaphragm with uri symtoms , sob on bipap and deep dry mucusy cough - bronchitis j20.9, J98.6Plan: 1.I am sending you a prescription as described below. doxycycline 100 bid for 10 dy fluticasone 2 spray bid. 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 2.Discussed precautions. Follow up:1.If there are any questions or problems with the prescription, call [phone] anytime for assistance. 2.Please re-connect for another online visit or see an in-person provider should your symptoms worsen or persist. 3.Taking a probiotic (either in pill form or by eating yogurt that contains probiotics) while using antibiotics can help prevent some of the troublesome side effects that antibiotics can sometimes cause.4.Please print a copy of this note and send it to your regular doctor, or take it to your next visit so it may be included in your medical record. Patient voiced understanding and agrees to plan.Please see your PCP on an annual basis. Electronically signed by: Maude Adorno( ) STRESS REPORT Observed: 02/03/2018 Status: F Source: [place] 12:55 PM [facility] REPOSITORY [facility] Cardiovascular Services [facility] [place] [address] MR#: [id number] Acct: [id number] Name: LINDA HERNANDEZ Rep #: [id number] : 1965 53 From: Vasu Vieyra MD Primary Care: Joy Vilchis DO Status: REG CLI Ordering Dr: Sex: F C Stress Test Report Exercise myocardial perfusion stress test. 53-year-old lady with a history of chest pain and dyspnea. Stress protocol: Resting EKG demonstrates normal sinus rhythm with a rate of 64 bpm no intervals are noted resting blood pressure is 112/76 meters of mercury. The patient exercised according to the regular Artem protocol for total duration of 10 minutes completing 1 minute into stage IV of the Artem protocol. The maximum heart rate attained was 155 bpm which was 92% of maximum predicted heart rate the maximum workload attained was 11.7 metabolic equivalents. At rest there were no ST or T-wave changes noted suggest ischemia at peak exercise no ST or T-wave changes were noted suggest ischemia. No clinical angina was noted the test was terminated due to leg fatigue. The resting blood pressure is 102/76 with a peak blood pressure 130/80 mmHg. Myocardial perfusion protocol. 13.9 mCi of technetium 99m sestamibi was injected at rest. The patient exercised according to regular Artem protocol for total duration of 10 minutes attaining 92% of maximum predicted heart rate at peak exercise 42.2 mCi of technetium 99m sestamibi was injected. Stress images were obtained stress and rest images were reconstructed and compared in the short axis vertical long and horizontal long axis. Gated images were also obtained Perfusion SPECT analysis: Review of the stress images demonstrate normal uptake of tracer noted in all areas of the myocardium. The resting images similarly demonstrate normal uptake of tracer noted in all areas of the myocardium. No areas of reversibility are noted suggest ischemia and no previous infarct is noted. Gated SPECT analysis. The gated ejection fraction is 73%. Conclusion: Normal exercise myocardial perfusion stress test at a high workload. Excellent functional capacity. Preserved ejection fraction. 02/03/18 1255 <Electronically signed by Vasu Vieyra MD> Date Vasu Vieyra MD CC: Joy Vilchis DO; Harry Prakash MD Date Dictated: 02/03/181248 Date Transcribed: 02/03/181248 [employer] [place]: [place] Signed ALLERGIES ALLERGIES DATE TYPE / CODE NAME / CODE REACTION SEVERITY SOURCE 10/24/2018 Drug No Known Unknown [facility] Allergy/4160 Allergies/F00 [facility] [address](SNOMED 1631993(RXNOR Repository CT) M) ENCOUNTERS ENCOUNTERS ADMIT/DISCHARGE ACCOUNT NUMBER ADMITTING ENCOUNTER LOCATION SOURCE CLASS 10/24/2018/10/24/20 [id number] Emergency [address] ding:ED Repository 10/07/2018/10/07/20 [id number] Ambulatory BBuilding:OL [place] 18 AB [facility] Repository 04/10/2018/04/10/20 [id number] [facility] Repository 03/30/2018/03/30/20 [id number] Ambulatory SREEDHAR [address] ding:OLAB [facility] Repository 03/06/2018/03/06/20 [id number] Ambulatory [address] ding:RAD [facility] Repository 02/17/2018/02/18/20 [id number] Ambulatory ABuilding:SD [place] 18 URoom: Health 0117Bed: A [facility] Repository 02/03/2018 [id number] Ambulatory [facility] ding:[facility] Repository 02/03/2018 [id number] Ambulatory BMSBuilding: [place] [facility] Repository PAYERS PAYERS ENCOUNTER GUARANTOR PAYER SUBSCRIBER SOURCE 10/24/2018 LINDA Antunez Primary LINDA Witt [id number] BACK Insurance:MEDICAL TROYERDOB: [facility] [id number] Number: Repository [id number]: [phone] [id number] [phone] (HP) Date:1440-14-44[address] [address]JF: 10/24/2018 Secondary NOT GIVENUNK [place] Insurance:SELF PAY [facility] Number: Effective Repository Date:2018-10-24 10/07/2018 LINDA Antunez Primary LINDA Antunez [facility] TROYERDOB: Insurance:MEDICAL TROYERDOB: [facility] [address] [id number] Repository BACK [place] Number: [address] [place], [place] [id number] [place] [id number]~[email or web address] Date:2018-10-07 [place], [place] OOMINTERNET.NETT [id number] [address]Dlv: [phone] el: [phone]) Name:[facility] [phone] [place] [address] ()Tel: ([phone] (HP)Tel: [phone]: ([phone] 04/10/2018 LINDA Antunez Primary LINDA Antunez [facility] TROYERDOB: Insurance:MEDICAL TROYERDOB: [facility] [address] [id number] Repository BACK [place] Number: [address] [place], [place] [id number] [place] [id number]~[email or web address] Date:2018-04-10 - [place] [employer] [id number] 35[address]Iof: (330) el: (330) Name:[facility] [phone] [place] [address] (HP)Tel: (000) (HP)Tel: [phone]: (WP) [phone] ([phone] 03/30/2018 [facility]:MEDICAL TROYERDOB: [facility] [address] [id number] Repository BACK [place] Number: [address] [place], [place] [id number] [place] [email or web address] Date:2018-03-30 [place], [place] [employer]OM[employer]T [id number] [address]Ocf: (330) el: (330) Name:NORY FOWLER [facility] SystemsTiffany7129 [phone] [place] [address] ()Tel: (000) (HP)Tel: [phone]: (WP) [phone] 03/06/2018 [facility]:MEDICAL TROYERDOB: [facility] [address] [id number] Repository BACK [place] Number: 23 [place], [place] [id number] [place] [id number]~[email or web address] Date:2018-03-05 [place] [employer] [id number] 179[address]Sqt: (330) el: (330) Name:Megan Hartman-[phone] [place] [address] ()Tel: (000) (HP)Tel: [phone]: (WP) [phone] ([phone] 02/17/2018 [facility] Insurance:MEDICAL TROYERDOB: [facility] [address] [id number] Repository BACK [place] Number: [address] [place], [place] [id number] [place] [email or web address] Date:2017-12-22 - [place] [employer]T [id number] [id number]: 330) el: ([phone]) Name:[phone] [place] [address] (HP)Tel: (000) (HP)Tel: [phone]: ([phone] 02/03/2018 Linda D Primary Linda D Eduar [id number] Back Insurance:MEDICAL TroyerDOB: [facility] [id number] Number: Repository [address]Nsh: 330 [id number] [phone] (HP) Date:[id number] [address] [address]SH: 02/03/2018 Secondary NOT GIVENUNK [place] Insurance:SELF PAY [facility] Number: Effective Repository Date:2018-01-19 02/03/2018 Linda D Primary Linda D [place] [id number] Back Insurance:MEDICAL TroyerDOB: [facility] [id number] Number: Repository [address]Oyv: 330 [id number] [phone] (HP) Date:4877-03-41[address] [address]WG: 02/03/2018 Secondary NOT GIVENUNK [place] Insurance:SELF PAY [facility] Number: Effective Repository Date:2018-02-03
== END 2018-10-24 17:25 | disposition home or self-care (01) ==
LOC: ED 11:47
PROVIDERS: Emergency Provider Emergency Medicine; Family Provider Family Medicine; PCP Family Medicine
DX: H81.10 Benign paroxysmal vertigo, unspecified ear (principal); R51 Headache; Z85.3 Personal history of malignant neoplasm of breast
CPT/HCPCS: 70450; 71045; 80048; 84484; 85025; 93005; 96360; 99285; A4216

== ENCOUNTER → 2023-02-12 | Outpatient (CLI) | payer OTHER, SELFPAY ==
[2023-02-12 12:27] LABS: Absolute Lymphocyte Count 1.62 X10^3/uL (0.83-4.51); Absolute Neutrophil Count 2.5 X10^3/uL (2.0-7.7); Basophil# 0.05 X10^3/uL; Eosinophil# 0.17 X10^3/uL; Eosinophils% 3.6 % (0-5); Hematocrit 41.2 % (37-47); Hemoglobin 13.3 g/dL (12.0-15.0); Lymphocyte # 1.62 X10^3/ul (0.83-4.51); Lymphocyte % 33.9 % (19-41); Mean Corp Hgb Conc 32.3 g/dL (32-36); Mean Corpuscular Hgb 29.4 pg (27.0-32.0); Mean Corpuscular Volume 90.9 fL (81-99); Mean Platelet Vol. 9.9 fl (6.2-12.0); Monocyte# 0.43 X10^3/uL; NRBC Flagged by Analyzer 0 % (0-5); Neutrophil % 52.3 % (47-70); Platelet Count 301 K/mm3 (150-450); RBC Distribution Width CV 12.3 % (11.6-14.6); RBC Distribution Width SD 40.7 fl (35.1-43.9); Red Blood Count 4.53 M/mm3 (4.2-5.4); White Blood Count 4.8 K/mm3 (4.4-11.0)
[2023-02-12 12:54] LABS: ALB/GLOB Ratio 1.2 RATIO (0.9-2.4); AST(SGOT) 20 U/L (15-37); Alanine Aminotransfer ALT/SGPT 26 U/L (13-56); Albumin, Serum 4.1 g/dL (3.2-5.0); Alkaline Phosphatase 85 U/L (45-117); Anion Gap 6 (5-15); BUN 15 mg/dL (7-18); BUN/Creat Ratio 17.1 RATIO (10-20); Calcium,Total 9.6 mg/dL (8.5-10.1); Chloride 107 mmol/L (98-107); Cholesterol 258 mg/dL (200); Creatinine, Serum 0.88 mg/dL (0.55-1.02); EST Glomerular Filtration Rate 70 mL/min (>60); Est Glom Filt Rate - Afr Amer 85 mL/min (>60); Globulin 3.5 g/dL (2.2-4.2); Glucose 103 mg/dL (74-106); High Density Lipoprotein 52 mg/dL; Potassium 4.5 mmol/L (3.5-5.1); Protein, Total 7.6 g/dL (6.4-8.2); Sodium Level 141 mmol/L (136-145); Thyroid Stim Hormone (TSH) 2.22 uIU/mL (0.358-3.74); Triglycerides 180 mg/dL; Very Low Density Lipoprotein 36 mg/dL (5-40)
== END | disposition home or self-care (01) ==
LOC: BIMLAB 09:07
PROVIDERS: PCP Family Medicine; Referring Provider Nurse Practitioner Family; Visit Provider Nurse Practitioner Family
DX: Z00.00 Encounter for general adult medical examination without abnormal findings (principal); F41.9 Anxiety disorder, unspecified; F32.A Depression, unspecified
CPT/HCPCS: 36415; 80053; 80061; 84443; 85025

== ENCOUNTER → 2023-05-13 | Outpatient (CLI) | payer OTHER, SELFPAY ==
[2023-05-13 17:06] LABS: CRP < 2.90 mg/L (0.0-3.0)
[2023-05-13 17:10] LABS: Erythrocyte Sedimentation Rate 11 mm/hr (0-30)
[2023-05-13 17:13] LABS: Absolute Lymphocyte Count 2.39 X10^3/uL (0.83-4.51); Absolute Neutrophil Count 3.9 X10^3/uL (2.0-7.7); Basophil# 0.05 X10^3/uL; Basophil% 0.7 % (0-1); Eosinophil# 0.16 X10^3/uL; Eosinophils% 2.3 % (0-5); Hemoglobin 13.3 g/dL (12.0-15.0); Lymphocyte # 2.39 X10^3/ul (0.83-4.51); Mean Corp Hgb Conc 32.4 g/dL (32-36); Mean Corpuscular Hgb 28.8 pg (27.0-32.0); Mean Corpuscular Volume 88.7 fL (81-99); Mean Platelet Vol. 9.6 fl (6.2-12.0); Monocyte# 0.53 X10^3/uL; Monocyte% 7.5 % (0-10); NRBC Flagged by Analyzer 0 % (0-5); Neutrophil # 3.88 X10^3/uL (2.7-7.7); Neutrophil % 55.4 % (47-70); Platelet Count 333 K/mm3 (150-450); RBC Distribution Width CV 12.2 % (11.6-14.6); RBC Distribution Width SD 39.7 fl (35.1-43.9); Red Blood Count 4.62 M/mm3 (4.2-5.4)
== END | disposition home or self-care (01) ==
LOC: BIMLAB 14:59
PROVIDERS: PCP Family Medicine; Referring Provider Family Medicine; Visit Provider Family Medicine
DX: K58.9 Irritable bowel syndrome, unspecified (principal)
CPT/HCPCS: 36415; 85025; 85652; 86140

== ENCOUNTER → 2024-03-30 | Outpatient (CLI) | payer OTHER, SELFPAY ==
[2024-03-30 16:33] LABS: Absolute Lymphocyte Count 2.36 X10^3/uL (0.83-4.51); Absolute Neutrophil Count 3.2 X10^3/uL (2.0-7.7); Basophil# 0.05 X10^3/uL; Basophil% 0.8 % (0-1); Eosinophil# 0.15 X10^3/uL; Eosinophils% 2.4 % (0-5); Hematocrit 39.6 % (37-47); Hemoglobin 12.7 g/dL (12.0-15.0); Lymphocyte # 2.36 X10^3/ul (0.83-4.51); Lymphocyte % 37.5 % (19-41); Mean Corp Hgb Conc 32.1 g/dL (32-36); Mean Corpuscular Hgb 29.1 pg (27.0-32.0); Mean Corpuscular Volume 90.6 fL (81-99); Mean Platelet Vol. 9.7 fl (6.2-12.0); Monocyte# 0.48 X10^3/uL; Monocyte% 7.6 % (0-10); NRBC Flagged by Analyzer 0 % (0-5); Neutrophil # 3.23 X10^3/uL (2.7-7.7); Neutrophil % 51.4 % (47-70); Platelet Count 304 K/mm3 (150-450); RBC Distribution Width CV 12.1 % (11.6-14.6); RBC Distribution Width SD 40.2 fl (35.1-43.9); Red Blood Count 4.37 M/mm3 (4.2-5.4); White Blood Count 6.3 K/mm3 (4.4-11.0)
[2024-03-30 17:15] LABS: ALB/GLOB Ratio 1.1 RATIO (0.9-2.4); AST(SGOT) 20 U/L (15-37); Alanine Aminotransfer ALT/SGPT 20 U/L (13-56); Albumin, Serum 4.1 g/dL (3.2-5.0); Alkaline Phosphatase 87 U/L (45-117); Anion Gap 6 (5-15); BUN 16 mg/dL (7-18); BUN/Creat Ratio 19.3 RATIO (10-20); Calcium,Total 8.9 mg/dL (8.5-10.1); Chloride 103 mmol/L (98-107); Cholesterol 245 mg/dL (200); Creatinine, Serum 0.83 mg/dL (0.55-1.02); EST Glomerular Filtration Rate 75 mL/min (>60); Est Glom Filt Rate - Afr Amer 91 mL/min (>60); Globulin 3.6 g/dL (2.2-4.2); Glucose 103 mg/dL (74-106); High Density Lipoprotein 42 mg/dL; Potassium 4.2 mmol/L (3.5-5.1); Protein, Total 7.7 g/dL (6.4-8.2); Sodium Level 137 mmol/L (136-145); Thyroid Stim Hormone (TSH) 2.81 uIU/mL (0.358-3.74); Triglycerides 316 mg/dL; Very Low Density Lipoprotein 63 mg/dL (5-40)
== END | disposition home or self-care (01) ==
LOC: BIMLAB 15:35
PROVIDERS: PCP Family Medicine; Visit Provider Family Medicine
DX: Z00.00 Encounter for general adult medical examination without abnormal findings (principal)
CPT/HCPCS: 36415; 80053; 80061; 84443; 85025

== ENCOUNTER → 2024-10-14 | Outpatient (CLI) | payer OTHER, SELFPAY ==
[2024-10-14 12:34] LABS: Anion Gap 7 (5-15); BUN 16 mg/dL (7-18); BUN/Creat Ratio 21.9 RATIO (10-20); Calcium,Total 9.2 mg/dL (8.5-10.1); Chloride 105 mmol/L (98-107); Cholesterol 258 mg/dL (200); Creatinine, Serum 0.73 mg/dL (0.55-1.02); EST Glomerular Filtration Rate 86 mL/min (>60); Est Glom Filt Rate - Afr Amer 104 mL/min (>60); Glucose 96 mg/dL (74-106); High Density Lipoprotein 55 mg/dL; Potassium 4.3 mmol/L (3.5-5.1); Sodium Level 140 mmol/L (136-145); Triglycerides 177 mg/dL; Very Low Density Lipoprotein 35 mg/dL (5-40)
== END | disposition home or self-care (01) ==
LOC: BIMLAB 09:56
PROVIDERS: PCP Family Medicine; Referring Provider Family Medicine; Visit Provider Family Medicine
DX: E78.5 Hyperlipidemia, unspecified (principal)
CPT/HCPCS: 36415; 80048; 80061

== ENCOUNTER → 2025-04-05 | Outpatient (CLI) | payer OTHER, SELFPAY ==
[2025-04-05 17:08] LABS: Absolute Lymphocyte Count 2.34 X10^3/uL (0.83-4.51); Absolute Neutrophil Count 4.1 X10^3/uL (2.0-7.7); Basophil# 0.06 X10^3/uL; Basophil% 0.8 % (0-1); Eosinophil# 0.22 X10^3/uL; Hematocrit 40.6 % (37-47); Hemoglobin 13.4 g/dL (12.0-15.0); Lymphocyte # 2.34 X10^3/ul (0.83-4.51); Lymphocyte % 32.2 % (19-41); Mean Corpuscular Hgb 29.5 pg (27.0-32.0); Mean Corpuscular Volume 89.2 fL (81-99); Mean Platelet Vol. 9.5 fl (6.2-12.0); Monocyte# 0.49 X10^3/uL; Monocyte% 6.7 % (0-10); NRBC Flagged by Analyzer 0 % (0-5); Neutrophil # 4.14 X10^3/uL (2.7-7.7); Platelet Count 327 K/mm3 (150-450); RBC Distribution Width SD 39.4 fl (35.1-43.9); Red Blood Count 4.55 M/mm3 (4.2-5.4); White Blood Count 7.3 K/mm3 (4.4-11.0)
[2025-04-05 17:13] LABS: Erythrocyte Sedimentation Rate 10 mm/hr (0-30)
[2025-04-05 17:19] LABS: ALB/GLOB Ratio 1.5 RATIO (0.9-2.4); AST(SGOT) 26 U/L (<=31); Alanine Aminotransfer ALT/SGPT 20 U/L (<=34); Albumin, Serum 4.7 g/dL (3.4-4.8); Alkaline Phosphatase 98 U/L (35-104); Anion Gap 12 (5-15); BUN 19 mg/dL (4-19); BUN/Creat Ratio 23.3 RATIO (10-20); Calcium,Total 9.6 mg/dL (7.6-11.0); Carbon Dioxide 25.5 mmol/L (21.0-32.0); Chloride 101 mmol/L (98-108); Cholesterol 247 mg/dL (<=200); EST Glomerular Filtration Rate 85 (>60); Globulin 3.2 g/dL (2.2-4.2); Glucose 113 mg/dL (70-99); High Density Lipoprotein 49 mg/dL; Low Density Lipoprotein Calc. 166 mg/dL; Potassium 4.2 mmol/L (3.3-5.1); Protein, Total 7.9 g/dL (5.9-8.4); Sodium Level 139 mmol/L (133-145); Total Bilirubin 0.22 mg/dL (0.00-1.30); Triglycerides 161 mg/dL; Very Low Density Lipoprotein 32 mg/dL (5-40); cholesterol:hdl ratio screen 5.01
== END | disposition home or self-care (01) ==
LOC: BIMLAB 16:03
PROVIDERS: PCP Family Medicine; Referring Provider Family Medicine; Visit Provider Family Medicine
DX: M25.50 Pain in unspecified joint (principal); K52.839 Microscopic colitis, unspecified; R53.82 Chronic fatigue, unspecified; E78.49 Other hyperlipidemia
CPT/HCPCS: 36415; 80053; 80061; 84443; 85025; 85652

== ENCOUNTER → 2025-04-19 | Outpatient (CLI) | payer OTHER, SELFPAY ==
--- NOTE | 2025-04-19 06:57 | BD_ITS ---
PROCEDURE: DEXA BONE DENSITY STUDY 04/19/2025 REASON FOR EXAM: OSTEOPOROSIS F, age 60 y/o . Postmenopausal. TECHNIQUE: DXA scan of sites with data reported below. REFERENCE LINKS: ISCD Adult Positions COMPARISON: None FINDINGS: BMD and T-SCORES Lumbar spine: 1.029 g/cm2, T-score -0.2 Levels: L1 through L4 Left femoral neck: 0.800 g/cm2, T-score -0.4 Femoral neck comparison data not recommended for monitoring change. Left total hip: 0.800 g/cm2, T-score -0.4 Right femoral neck: 0.959 g/cm2, T-score 0.1 Femoral neck comparison data not recommended for monitoring change. The World Health Organization has defined the following categories based on bone density: Normal bone density: T-score equal to or greater than -1.0 Osteopenia: T-score between -1.0 and -2.5 Osteoporosis: T-score equal to or less than -2.5 The patient does meet the pharmacological treatment recommendations for prevention of osteoporosis. BD/Dexa Bone Density Study IMPRESSION: NORMAL T-SCORES. Recommend follow-up as clinically warranted. Reading Location: [place] [address]
== END | disposition home or self-care (01) ==
PROVIDERS: PCP Family Medicine; Referring Provider Family Medicine; Visit Provider Family Medicine
DX: Z78.0 Asymptomatic menopausal state (principal)
CPT/HCPCS: 77080